=== PATIENT | male | born 1975 | race Caucasian/White ===

== ENCOUNTER 2024-12-21 11:08 | Outpatient (CLI) | payer OTHER, SELFPAY ==
[2024-12-21 11:04] LABS: Basophils % 0.4 % (0.1-2.0); Eosinophils # 0.1 K/mm3 (0.0-0.4); Lymphocytes # 1.8 K/mm3 (0.7-4.5); Monocytes # 0.4 K/mm3 (0.1-1.0)
[2024-12-21 11:14] LABS: Eosinophils % 1.7 % (0.1-12.0); Hematocrit 46.9 % (42.0-52.0); Hemoglobin 15.6 g/dL (14.1-18.0); Mean Corpuscular HGB Conc 33.3 g/dL (31.8-35.4); Mean Corpuscular Hemoglobin 27.9 pg (27.0-31.2); Mean Corpuscular Volume 83.9 fl (80-94); Mean Platelet Volume 9.9 fl (7.4-10.4); Monocytes % 7.9 % (1.7-9.3); Neutrophils # 2.4 K/mm3 (1.8-7.8); Neutrophils % 51.8 % (37.0-80.0); Platelet Count 196 K/mm3 (142-424); Red Blood Count 5.59 M/mm3 (4.60-6.20); Red Cell Distribution Width 12.5 % (11.5-17.5); White Blood Count 4.7 K/mm3 (4.8-10.8)
[2024-12-21 11:43] LABS: Alanine Aminotransferase 51 U/L (12-78); Albumin Level 4.3 g/dl (3.5-5.0); Albumin/Globulin Ratio 1.7 (1.1-1.8); Alkaline Phosphatase 56 U/L (38-126); Anion Gap 11.4 mEq/L (5-15); Aspartate Amino Transferase 41 U/L (17-59); Bilirubin,Total 0.6 mg/dl (0.2-1.3); Blood Urea Nitrogen 17 mg/dl (9-20); Calcium 9.3 mg/dl (8.4-10.2); Carbon Dioxide 28 mmol/L (22.0-30.0); Chloride 106 mmol/L (98-107); Chol/HDL Ratio 4.8 (1-3.5); Cholesterol 155 mg/dl (140-200); Estimated Glomerular Filt Rate 71 ml/min (>60); GFR (African American) 86 ML/MIN (>60); Globulin 2.5 g/dL (1.3-3.2); Glucose 77 mg/dl (74-100); HDL Cholesterol 32 mg/dl (40-60); Potassium 4.4 mmoL/L (3.5-5.1); Sodium 141 mmol/L (136-145); Total Protein,Serum 6.8 g/dl (6.3-8.2); Triglycerides 187 mg/dl (30-150); VLDL Cholesterol 37 mg/dL (0-40)
[2024-12-21 13:14] LABS: Direct LDL Cholesterol 91.48 mg/dL (100-129)
[2024-12-21 14:38] LABS: Hemoglobin A1C 4.7 % (4.0-6.0)
[2024-12-21 18:09] LABS: Free T4 (Free Thyroxine) 0.86 ng/dl (0.78-2.19)
== END 2024-12-21 23:59 | disposition home or self-care (01) ==
LOC: LAB.DROPOF 11:09
PROVIDERS: PCP Internal Medicine; Visit Provider Internal Medicine
DX: Z00.00 Encounter for general adult medical examination without abnormal findings (principal); Z13.29 Encounter for screening for other suspected endocrine disorder; Z13.220 Encounter for screening for lipoid disorders; Z13.1 Encounter for screening for diabetes mellitus
CPT/HCPCS: 80053; 80061; 83036; 84439; 84443; 85025

== ENCOUNTER 2025-02-04 13:39 | Outpatient (CLI) | payer OTHER, SELFPAY ==
[2025-02-04 12:03] LABS: Free T4 (Free Thyroxine) 0.99 ng/dl (0.78-2.19)
[2025-02-04 12:17] LABS: Thyroid Stimulating Hormone 8.23 uIU/mL (0.465-4.68)
== END 2025-02-04 23:59 | disposition home or self-care (01) ==
LOC: LAB.DROPOF 13:39
PROVIDERS: PCP Internal Medicine; Visit Provider Internal Medicine
DX: Z13.29 Encounter for screening for other suspected endocrine disorder (principal)
CPT/HCPCS: 84439; 84443

== ENCOUNTER 2025-02-09 08:35 | Day surgery (SDC) | payer OTHER, SELFPAY ==
[2025-02-09 08:46] VITALS: BP 131/96; PULSE 87; RESP 18; TEMP 36.1; O2SAT 97; BMI 28.2
--- NOTE | 2025-02-09 09:06 | P.PNANES_ITS ---
[facility] Disclaimer: The information contained in this section may have been updated after the patient was seen, as this information can be updated by other users. Medical History Factor VIII deficiency hemophilia Borderline hypertension Surgical History H/O hemorrhoidectomy History of left knee replacement Family History (Updated 02/08/25 @ 09:21 by Todd Figueredo RN) Other No significant family history Social History (Updated 02/08/25 @ 09:24 by Todd Figueredo RN) Smoking Status: Never smoker alcohol intake: never substance use type: denies use current occupational status: employed Travel in the last 8 weeks: Inside the [place] Have you lived/traveled outside US in past 30 days?: No Contact w/someone who lives/traveled outside US past 30 days?: No Exposure to someone with infectious disease in past 14 days?: No Do you have a fever (greater than 100.4 F or 38 C)?: No Have you tested positive for COVID-19: No Exposed to someone with COVID-19 in past 14 days?: No Do you have a sore throat?: No Do you have a cough?: No Do you have any weakness?: No Do you have any diarrhea?: No Are you experiencing any unusual bleeding?: No Do you have any muscle aches/pain?: No Do you have any abdominal pain?: No Are you experiencing loss of taste or smell?: No [facility] Anesthesia Checklist Patient Identification Patient Identification: Arm Band Structural Data Admitted From: Home Planned Operative Procedure/s: Colonoscopy Consent for Planned Operative Procedure(s) Verified: Yes Verified Documents: Surgical Consent and History and Physical NPO Status Verified Time NPO: 00:00 Additional verifications Anesthesia Reactions: No Airway Assessment Mallampati Score:: Class II C-Spine Mobility Assessed: Yes TMJ Mobility Assessed: Yes Dentition: Good Dentition Neurological Assessment Level of Consciousness: Awake, Alert and Appropriate Anesthesia Plan Anesthesia Risk discussed: Yes Anesthesia Plan: Verified ASA Class: II Anesthesia Type: MAC
--- NOTE | 2025-02-09 09:17 | EXP.GEN.HP ---
HPI HPI HPI: This is a 49-year-old gentleman who presents for screening colonoscopy. [facility] Disclaimer: The information contained in this section may have been updated after the patient was seen, as this information can be updated by other users. Medical History Factor VIII deficiency hemophilia Borderline hypertension Surgical History H/O hemorrhoidectomy History of left knee replacement Family History (Updated 02/08/25 @ 09:21 by Todd Figueredo RN) No significant family history Social History (Updated 02/08/25 @ 09:24 by Todd Figueredo RN) Smoking Status: Never smoker alcohol intake: never substance use type: denies use current occupational status: employed Travel in the last 8 weeks: Inside the [place] Have you lived/traveled outside US in past 30 days?: No Contact w/someone who lives/traveled outside US past 30 days?: No Exposure to someone with infectious disease in past 14 days?: No Do you have a fever (greater than 100.4 F or 38 C)?: No Have you tested positive for COVID-19: No Exposed to someone with COVID-19 in past 14 days?: No Do you have a sore throat?: No Do you have a cough?: No Do you have any weakness?: No Do you have any diarrhea?: No Are you experiencing any unusual bleeding?: No Do you have any muscle aches/pain?: No Do you have any abdominal pain?: No Are you experiencing loss of taste or smell?: No Other Medical History Have you received the Pneumonia Vaccine: No Review of Systems Review of Systems Review of systems:: pertinent systems reviewed and negative unless documented below Meds Home Medications and Allergies Home Medications ?Medication ?Instructions ?Recorded ?Confirmed ?Type emicizumab-kxwh 150 mg/mL 150 mg SQ WEEKLY 02/08/25 02/08/25 History subcutaneous solution (Hemlibra) New Prescriptions to Start Prescriptions: Allergies Allergy/AdvReac Type Severity Reaction Status Date / Time No Known Allergies Allergy Verified 12/18/24 14:36 Exam Data for Last 24 hours Vital signs and Labs for Last 24 Hours: Temp Pulse Resp BP Pulse Ox O2 Del Method 97 F L 87 18 131/96 H 97 Room Air 02/09/25 08:46 02/09/25 08:46 02/09/25 08:46 02/09/25 08:46 02/09/25 08:46 02/09/25 08:46 I & O for Last 24 hours: Intake & Output 02/06/25 02/07/25 02/08/25 02/09/25 11:59 11:59 11:59 11:59 Weight 208 lb Constitutional Constitutional: no acute distress *Routine HEENT Exam Head: Present normocephalic Eye: Present EOMI ENT: Present mucous membranes moist *Routine Respiratory Exam Respiratory: Absent respiratory distress *Routine Cardiovascular Exam Cardiovascular: Absent tachycardia *Routine Abdominal Exam Abdominal: Present soft *Routine Rectal Exam Rectal:: deferred *Routine Genitalia Exam Genitalia:: deferred *Routine Neurological Exam Neurological: Present alert Routine Psychiatric Exam Psychiatric: Present normal affect Assessment and Plan *Assessment and plan (1) Screening for colorectal cancer: Status: Acute Category: Medical Code(s): Z12.11 - Encounter for screening for malignant neoplasm of colon; Z12.12 - Encounter for screening for malignant neoplasm of rectum Plan: Colonoscopy today I have discussed the risks and benefits including, but not limited to: Bleeding Infection Damage to surrounding tissue Inherent risks of sedation The patient agrees to proceed.
--- NOTE | 2025-02-09 09:19 | HMH.SCOPE ---
Procedure: Date: 02/09/25 Patient Date of :: 1975 Procedure Performed:: Colonoscopy with polypectomy Indications:: Screening Performing Provider:: Forrest Nettles MD Referring Provider:: . Sedation:: Monitored anesthesia care Procedure:: After informed consent was obtained the patient was taken to the endoscopy suite. Sedation ensued after the patient was transferred to the left lateral decubitus position. Pulse, blood pressure, and oxygen saturation were monitored throughout the procedure. Digital rectal exam revealed no significant abnormality. The colonoscope was placed in position. The entire colon was evaluated. The colonoscope was carefully removed and the patient was transferred to recovery in stable condition. Please see findings and specimens below for detail. Findings:: Bowel preparation relatively fair Scattered diverticulosis (mostly in sigmoid colon) Severe spasticity/lack of relaxation Moderate tortuosity Hemorrhoidal cushions Multiple complex polyps (see specimens) Specimens:: Lobulated complex polyp at 60 cm (cold snare) Complex lobulated partially-pedunculated polyp at 35 cm (hot snare) Complex partially-pedunculated polyp at 30 cm (hot snare) Adjacent partially-pedunculated polyps at 20 cm (hot snare) Cluster of lobulated polyps at 15 cm (hot snare) Recommendations:: Timing of repeat colonoscopy is pending pathology but will likely be around 1 year secondary to size/nature/number of polyps. Complications:: No immediate Estimated blood obtained (mL): 1 Colonoscopy Component Colonoscopy Component Was a colonoscopy performed during today's procedure?: Yes Recommended follow up colonoscopy of at least 10 years?: No If no, follow up colonoscopy recommended in ___ years?: (See above) Reason for not recommending >/= 10 yr follow-up interval?: (See above)
[2025-02-09 09:23] VITALS: O2SAT 97
[2025-02-09 10:09] VITALS: BP 100/72; PULSE 94; RESP 14; TEMP 36.4; O2SAT 92
[2025-02-09 10:19] VITALS: BP 122/83; PULSE 84; RESP 15; O2SAT 96
[2025-02-09 10:29] VITALS: BP 114/79; PULSE 78; RESP 16; O2SAT 94
[2025-02-09 10:39] VITALS: BP 117/80; PULSE 67; RESP 16; O2SAT 96
== END 2025-02-09 10:39 | disposition home or self-care (01) ==
PROVIDERS: PCP Internal Medicine; Visit Provider Surgery
PROC: 0DJD8ZZ Inspection of Lower Intestinal Tract, Via Natural or Artificial Opening Endoscopic (ICD-10-PCS; CPT 45385; principal; 2025-02-09 09:30)
DX: K63.5 Polyp of colon (principal); K57.30 Diverticulosis of large intestine without perforation or abscess without bleeding; K64.9 Unspecified hemorrhoids; Z12.11 Encounter for screening for malignant neoplasm of colon; Z12.12 Encounter for screening for malignant neoplasm of rectum
CPT/HCPCS: 45385; J2704

== ENCOUNTER 2025-03-29 13:23 | Outpatient (CLI) | payer OTHER, SELFPAY ==
[2025-03-29 17:54] LABS: Free T4 (Free Thyroxine) 0.86 ng/dl (0.78-2.19)
[2025-03-29 18:06] LABS: Thyroid Stimulating Hormone 5.11 uIU/mL (0.465-4.68)
== END 2025-03-29 23:59 | disposition home or self-care (01) ==
LOC: LAB.DROPOF 03-30 10:22
PROVIDERS: PCP Internal Medicine; Visit Provider Internal Medicine
DX: E03.8 Other specified hypothyroidism (principal); Z13.29 Encounter for screening for other suspected endocrine disorder
CPT/HCPCS: 84439; 84443

== ENCOUNTER 2025-04-30 16:50 | Outpatient (CLI) | payer OTHER, SELFPAY ==
--- OUTSIDE RECORDS SUMMARY | 2025-04-30 16:53 | XMS_ITS | CCD ---
Author Name Interface, [id number] Address [place] [address] Organization [facility] Address [address] [address] Care Team Providers Care Assistant Producer Name Role Phone Rommel Durán Unavailable Unavailable Adi Cortez Unavailable Unavailable Donnie Dangelo Unavailable Unavailable Allergies and Adverse Reactions Reason for Visit Encounters Functional Status Medications Problems Social History
--- OUTSIDE RECORDS SUMMARY | 2025-04-30 16:53 | XMS_ITS | Clinical Summary ---
Author Organization [facility] Address [address] [place] [id number] Care Team Providers Care Schedule Hanger Name Role Phone Yoli Fregoso MD Unavailable [phone] Karol Weldon RN Unavailable Unavailable Dana Corbin Unavailable [phone] Kaila Medina CNP Unavailable [phone] Pcp, No Primary Care Provider [phone] Source Comments This information has been disclosed to you from confidential records protectedfrom disclosure by state law. You shall make no further disclosure of thisinformation without the specific, written, and informed release of theindividual to whom it pertains, or as otherwise permitted by law. A generalauthorization for the release of medical or other information is not sufficientfor the purposes of therelease of HIV test results or diagnoses. [id number] Allergies No known active allergies Medications emicizumab-kxwh (HEMLIBRA) 150 mg/mL injectionIndicati ons:Bleeding Prevention in Hereditary Factor VIII Deficiency Inject 1.9 mLs (285 mg total) subcutaneously every 14 days. Give each injection at a different anatomic location than the previous injection. Indications: Bleeding Prevention in Hereditary Factor VIII Deficiency 3.8 mL 12 05/20/20 24 025 Active traMADoL (ULTRAM) 50 mg tabletIndications :Arthropathy associated with a hematological disorder Take 1 tablet (50 mg total) by mouth every 6 hours as needed for Pain for up to 30 days. 30 tablet 03/19/20 25 025 Active Problems Problem Noted Date Diagnosed Date Arthropathy 11/11/2017 Overview (11/21/2023): Last Assessment & Plan: ASSESSMENT: The patient's condition is unchanged. 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 No suspicious fill activity noted. Elevated blood pressure read ing without diagnosis of hypertension 11/07/2016 Overview (11/21/2023): Last Assessment & Plan: ASSESSMENT: The patient's condition is unchanged. PLAN: Monitor bp. If remains elevated, add medications Pt to monitor at home Goal 130/80 or less Hypertension 09/08/2007 Hypothyroidism 09/08/2007 Overview (11/21/2023): Last Assessment & Plan: ASSESSMENT: The patient's condition is unchanged. PLAN: Monitor thyroid function tests Continue levothyroxine. 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 PLAN: Continue hematology follow up Encounters Date Type Department Care Team Description 03/18/2025 Refill [facility] Benign Hematology at [address] [place] [address] Yoli Fregoso MD Arthropathy associated with a hematological disorder from Last 3 Months Immunizations Immunization Administration Dates Next Due Influenza, quadrivalent, preservative-free 11/07 Pneumococcal conjugate, 13-valent 11/07/2016 Typhoid Oral Live 07/12/2015 tdap 11/11/2017 Family History Medical History Relation Comments Dementia Mother Relation Status Comments Father Mother Social History Tobacco Use Types Packs/Day Years Used Date Smoking Tobacco: Never Smokeless Tobacco: Never Tobacco Cessation:Counseling Given: Not Answered Alcohol Use Standard Drinks/Week Comments Yes 0 (1 standard drink = 0.6 oz pur e alcohol) socially PHQ-2 Answer Date Recorded PHQ-2 Total Score 0 10/29/2024 Yearly Questionnaire Answer Date Record ed Do you need any assistance w ith obtaining housing, meals, medication, transportation or medical equipment? No 06/02 Assistance needed for: Not on file 4 Yearly Questionnaire Answer Date Record ed Do you need any assistance w ith obtaining housing, meals, medication, transportation or medical equipment? No 06/02 Assistance needed for: Not on file 4 Yearly Questionnaire Answer Date Record ed Do you need any assistance w ith obtaining housing, meals, medication, transportation or medical equipment? No 06/02 Assistance needed for: Not on file Sex and Gender Information Value Date Recorded Sex Assigned at Not on file Legal Sex Male 2:22 PM EDT Gender Identity Not on file Sexual Orientation Not on file Last Filed Vital Signs Vital Sign Reading Time Taken Comments Blood Pressure 139/90 10/29/2024 2:59 PM EST Pulse 79 10/29/2024 2:59 PM EST Temperature 36.7 C (98 F) 10/29/2024 2:59 PM EST Respiratory Rate - - Oxygen Saturation 98% 10/29/2024 2:59 PM EST Inhaled Oxygen Concentration 98% 10/29/2024 2 :59 PM EST Weight 98.9 kg (218 lb) 10/29/2024 2:59 PM EST Height 182.9 cm (6') 06/02/2024 2:16 PM EDT Body Mass Index 29.57 06/02/2024 2:16 PM EDT Plan of Treatment Health Maintenance Due Date Last Done Comments ASCVD Assessment 1975 Abnormal Colonoscopy Follow Up 1975 Renal Function/GFR 1975 Alcohol Misuse Screening 02/13/1992 HIV Screening 02/13/1992 Thyroid Function/TSH (MyChart) 02/13/1992 Immunization: Hepatitis B (1 of 3 - 19+ 3-dose series) 1993 Cologuard (FIT-DNA) 2019 Colonoscopy 2019 Colorectal Cancer Screening (MyChart) 2019 Stool Testing (gFOBT) 2019 Immunization: Pneumococcal ( 2 of 2 - PPSV23) 02/13/2024 11/07/2016 Immunization: Zoster (1 of 2) 02/13/2024 Immunization: COVID-19 ( - season) 2024 Immunization: Influenza (MyChart) (Season Ended) 2025 11/07/2016, 08/19/2008 Depression Screening 10/29/2025 10/29/2024, 06/02/2024 Immunization: DTaP/Tdap/Td ( 2 - Td or Tdap) 11/11/2027 11/11/2017 Immunization: Hepatitis A Aged Out No longer eligible based on patient's age to complete this topic Insurance EXCHANGE Care Teams Schedule Hanger Relationship Specialty Start Date End Date Pcp, No [phone] [place] [address] PCP - General 05/21/24 Yoli Fregoso MD [address] [facility] [address] [place] [address] Consulting Physician [facility] 11/21/23 Karol Weldon, YVES Registered Nurse Benign Hematology 11/21/23 Dana Corbin LISW-S [address] [place]ematology/[place] [id number] Traction Power Engineer Hematology and Oncology 11/21/23 Kaila Medina, DELIA [address] [facility] [address] [place] [address] Nurse Practitioner [facility] Hematology 11/21/23
--- OUTSIDE RECORDS SUMMARY | 2025-04-30 16:53 | XMS_ITS ---
Author Name Interface, [id number] lity Address [place] [address] Organization [facility] Address [place] [address] Care Team Providers Care Artificial Cherry Maker Name Role Phone Adi Cortez Unavailable Unavailable Allergies and Adverse Reactions Medication/Group Name Reaction Severity Date No known allergies Plan Date Type Value 09/10/2023 APPOINTMENT MB L OV 12m 09/10/2023 APPOINTMENT MB L OV 12m 09/11/2022 APPOINTMENT MB L OV f/u 09/11/2022 APPOINTMENT MB L OV 09/11/2022 APPOINTMENT MB L OV 09/11/2022 APPOINTMENT MB L OV 09/11/2022 LABORDER CMP 09/11/2022 LABORDER CBC w/ auto diff 09/10/2023 LABORDER CMP 09/10/2023 LABORDER CBC w/ auto diff Reason for Visit MB L OV 12m Encounters Date Name 09/11/2022 Factor VIII deficien cy (disorder) Diagnostic Results Date Type Test Units Lower Limit Upper Limit Result Flag Comments Status Ordered By Specimen Source Lab Address 09/11 CMP CO2 mmol/L 21.0 32.0 28.2 FINAL Adi Cortez Plasma [facility]. [address] [place] [address] [address] [address] CLIA#[id number] 09/11 CMP BUN mg/dL 7.0 18.0 18.0 FINAL Adi Cortez [facility]. [address] [place] [address] [address] [address] CLIA#[id number] 09/11 CMP Creat inine mg/dL 0.55 1.3 1.17 FINAL Adi Cortez Plasma [facility]. [address] [place] [address] [address] [address] CLIA#[id number] 09/11 CMP BUN/C reati nine ratio Ratio 10.0 20.0 15.4 FINAL Adi Cortez [facility]. [address] [place] [address] [address] [address] CLIA#[id number] 09/11 CMP GFR estim ate 73 eGFR based on CKD-EPI to estimate renal function. If multiply results by 1.159.60- 89 mL/min/1. 73m^2 without kidney damage may be normal.60 -89 mL/min/1. 73m^2 for 3 months or more, along with kidney damage, may indicate early kidney disease. FINAL [facility] Plasma [facility]. [address] [place] [address] [address] [address] CLIA#[id number] 09/11 CMP Gluco se mg/dL 65 Criti js Low CRITICAL VALUE called to and read back by Joan Molina on 2 on 11:27 AM by Yoli Mcwilliams. (GLU) FINAL [facility]. [address] [place] [address] [address] [address] CLIA#[id number] 09/11 CMP Calci um mg/dL 8.5 10.1 9.1 FINAL [facility]. [address] [place] [address] [address] [address] CLIA#[id number] 09/11 CMP Total prote in g/dL 6.4 8.2 7.4 FINAL Adi Cortez Plasma [facility]. [address] [place] [address] [address] [address] CLIA#[id number] 09/11 CMP Album in g/dL 3.4 5.0 3.8 FINAL Adi [facility] Plasma [facility]. [address] [place] [address] [address] [address] CLIA#[id number] 09/11 CMP Globu santa g/dL 2.3 3.5 3.6 High FINAL [facility] Plasma [facility]. [address] [place] [address] [address] [address] CLIA#[id number] 09/11 CMP Bilir ubin, total mg/dL 0.2 1.0 0.8 FINAL Adi Cortez [facility]. [address] [place] [address] [address] [address] CLIA#[id number] 09/11 CMP AST/S GOT U/L 15.0 37.0 30.0 FINAL Adi Cortez [facility]. [address] [place] [address] [address] [address] CLIA#[id number] 09/11 CMP ALT/S GPT U/L 16.0 63.0 40 FINAL Adi Cortez [facility]. [address] [place] [address] [address] [address] CLIA#[id number] 09/11 CMP Alkal ine phosp hatas e U/L 46.0 116.0 63 FINAL Adi Cortez [facility]. [address] [place] [address] [address] [address] CLIA#[id number] 09/11 CMP Sodiu m mmol/L 136.0 145.0 139.0 FINAL Adi Cortez [facility]. [address] [place] [address] [address] [address] CLIA#[id number] 09/11 CMP Potas sium mmol/L 3.5 5.1 3.8 FINAL Adi Cortez [facility]. [address] [place] [address] [address] [address] CLIA#[id number] 09/11 CMP Chlor hi mmol/L 97.0 107.0 104 FINAL Adi Cortez [facility]. [address] [place] [address] [address] [address] CLIA#[id number] 09/11 CBC w/ auto diff WBC 10^3/u l 4.8 10.8 5.2 FINAL Adi Cortez Whole Blood [facility]. [address] [place] [address] [address] [address] CLIA#[id number] 09/11 CBC w/ auto diff RBC 10^6/u l 4.7 6.1 5.51 FINAL Adi Cortez Whole [facility]. [address] [place] [address] [address] [address] CLIA#[id number] 09/11 CBC w/ auto diff HGB g/dl 14.0 18.0 15.7 FINAL Adi Cortez Whole Blood [facility]. [address] [place] [address] [address] [address] CLIA#[id number] 09/11 CBC w/ auto diff HCT % 40.0 50.0 45.2 FINAL Adi Cortez Whole Blood [facility]. [address] [place] [address] [address] [address] CLIA#[id number] 09/11 CBC w/ auto diff MCV fl 80.0 94.0 82.0 FINAL Adi Cortez Whole [facility]. [address] [place] [address] [address] [address] CLIA#[id number] 09/11 CBC w/ auto diff MCH pg 27.0 31.0 28.5 FINAL Adi Cortez Whole Blood [facility]. [address] [place] [address] [address] [address] CLIA#[id number] 09/11 CBC w/ auto diff MCHC g/dl 33.0 37.0 34.7 FINAL Adi Cortez Whole Blood [facility]. [address] [place] [address] [address] [address] CLIA#[id number] 09/11 CBC w/ auto diff MPV fl 9.4 12.4 9.4 FINAL Adi Cortez Whole Blood [facility]. [address] [place] [address] [address] [address] CLIA#[id number] 09/11 CBC w/ auto diff RDW % 10.5 14.5 13.1 FINAL Adi Cortez Whole Blood [facility]. [address] [place] [address] [address] [address] CLIA#[id number] 09/11 CBC w/ auto diff PLT 10^3/u l 130.0 400.0 196 FINAL Adi Cortez Whole Blood [facility]. [address] [place] [address] [address] [address] CLIA#[id number] 09/11 CBC w/ auto diff Derek % % 40.0 77.0 58.2 FINAL Adi Cortez Whole Blood [facility]. [address] [place] [address] [address] [address] CLIA#[id number] 09/11 CBC w/ auto diff Derek # (ANC) x10^3/ ul 1.5 6.5 3.0 FINAL Adi Cortez Whole Blood [facility]. [address] [place] [address] [address] [address] CLIA#[id number] 09/11 CBC w/ auto diff IG % % 0.0 0.5 0.2 FINAL Adi Cortez Whole Blood [facility]. [address] [place] [address] [address] [address] CLIA#[id number] 09/11 CBC w/ auto diff IG # x10^3/ ul 0.0 0.0 0.0 FINAL Adi Cortez Whole Blood [facility]. [address] [place] [address] [address] [address] CLIA#[id number] 09/11 CBC w/ auto diff LY % % 15.0 41.0 27.5 FINAL Adi Cortez Whole Blood [facility]. [address] [place] [address] [address] [address] CLIA#[id number] 09/11 CBC w/ auto diff LY # x10^3/ ul 1.2 3.4 1.4 FINAL Adi Cortez Whole Blood [facility]. [address] [place] [address] [address] [address] CLIA#[id number] 09/11 CBC w/ auto diff MO % % 3.0 11.0 11.2 High FINAL Adi Cortez Whole Blood [facility]. [address] [place] [address] [address] [address] CLIA#[id number] 09/11 CBC w/ auto diff MO # x10^3/ ul 0.0 1.0 0.6 FINAL Adi Cortez Whole Blood [facility]. [address] [place] [address] [address] [address] CLIA#[id number] 09/11 CBC w/ auto diff EO % % 0.0 3.0 2.5 FINAL Adi Cortez Whole Blood [facility]. [address] [address] CLIA#[id number] 09/11 CBC w/ auto diff EO # x10^3/ ul 0.0 0.3 0.1 FINAL Adi Cortez Whole Blood [facility]. [address] [place] [address] [address] [address] CLIA#[id number] 09/11 CBC w/ auto diff BA % % 0.0 1.0 0.4 FINAL Adi Cortez Whole Blood [facility]. [address] [place] [address] [address] [address] CLIA#[id number] 09/11 CBC w/ auto diff BA # x10^3/ ul 0.0 0.2 0.0 FINAL Adi Cortez Whole Blood [facility]. [address] [place] [address] [address] [address] CLIA#[id number] 09/11 CBC w/ auto diff NRBC, % % 0.0 1.0 0.0 FINAL Adi Cortez Whole Blood [facility]. [address] [place] [address] [address] [address] CLIA#[id number] 09/11 CBC w/ auto diff NRBC, absol germain, x 10^3/ uL 10^3/u l 0.0 0.1 0.0 FINAL Adi Cortez Whole Blood [facility]. [address] [place] [address] [address] [address] CLIA#[id number] Medications Date Name Route Dose Frequency Instructions Start Date End Date Status 2022 tramadol hydrochloride 50 MG Oral Tablet orally 1.0 tablet (s) every 4 hours 2022 active 2022 tramadol hydrochloride 50 MG Oral Tablet orally 1.0 tablet (s) every 4 hours 2022 active 2022 1 ML emicizumab-kxwh 150 MG/ML Injection [Hemlibra] 2022 active 2022 tramadol hydrochloride 50 MG Oral Tablet orally 1.0 tablet (s) every 4 hours 2022 active 2021 tramadol hydrochloride 50 MG Oral Tablet orally 1.0 tablet (s) every 4 hours 2021 active 2021 tramadol hydrochloride 50 MG Oral Tablet orally 1.0 tablet (s) every 4 hours 2021 active 2021 antihemophilic factor, human recombinant 1 UNT Injection [Kogenate] intravenously 2851.0 unit As Directed 2021 active 2021 1 ML emicizumab-kxwh 150 MG/ML Injection [Hemlibra] 2021 active 2021 1 ML emicizumab-kxwh 150 MG/ML Injection [Hemlibra] subcutaneously 300.0 mg every week 2021 active 2021 antihemophilic factor, human recombinant 1 UNT Injection [Kogenate] intravenously 2851.0 unit every other day 2021 active 2021 tramadol hydrochloride 50 MG Oral Tablet orally 1.0 tablet (s) every 4 hours 2021 active 2020 tramadol hydrochloride 50 MG Oral Tablet orally 1.0 tablet (s) every 4 hours 2020 active 2020 antihemophilic factor, human recombinant 1 UNT Injection [Advate] intravenously 2851.0 unit every other day 2020 active 2020 tramadol hydrochloride 50 MG Oral Tablet orally 1.0 tablet (s) every 4 hours 2020 active 2020 tramadol hydrochloride 50 MG Oral Tablet orally 1.0 tablet (s) every 4 hours 2020 active 2020 tramadol hydrochloride 50 MG Oral Tablet orally 1.0 tablet (s) every 4 hours 2020 active 2019 simoctocog [place] 1 UNT Injection [Nuwiq] intravenous 3000.0 iu As Directed 2019 active 2019 simoctocog [place] 1 UNT Injection [Nuwiq] intravenous 3000.0 iu As Directed 2019 active 2019 simoctocog [place] 1 UNT Injection [Nuwiq] intravenous 3000.0 iu As Directed 2019 active 2019 simoctocog [place] 1 UNT Injection [Nuwiq] intravenous 2844.0 iu As Directed 2019 active 2019 Levothyroxine Oral PO 1.0 TABLET (S) daily 2019 active 2019 tramadol hydrochloride 50 MG Oral Tablet orally 1.0 tablet (s) every 4 hours 2019 active 2018 tramadol hydrochloride 50 MG Oral Tablet orally 1.0 tablet (s) every 4 hours 2018 active 2018 tramadol hydrochloride 50 MG Oral Tablet orally 1.0 tablet (s) every 4 hours 2018 active 2017 tramadol hydrochloride 50 MG Oral Tablet orally 1.0 tablet (s) every 4 hours 2017 active 2017 tramadol hydrochloride 50 MG Oral Tablet orally 1.0 tablet (s) every 4 hours 2017 active 2016 antihemophilic factor, human recombinant 1 UNT Injection 2016 active 2016 tramadol hydrochloride 50 MG Oral Tablet orally 1.0 tablet (s) every 6 hours 2016 active 2016 antihemophilic factor, human recombinant 1 UNT Injection 2016 active 2016 antihemophilic factor, human recombinant 1 UNT Injection 2016 active 2016 antihemophilic factor, human recombinant 1 UNT Injection 2016 active 2016 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
--- OUTSIDE RECORDS SUMMARY | 2025-04-30 16:53 | XMS_ITS | Encounter Summary ---
Author Organization [facility] Address [facility] [place] [address] Care Team Providers Care Measurement Technician Name Role Phone Yoli Fregoso MD Unavailable [phone] Mayra Weldon RN Unavailable Unavailable Dana Corbin Unavailable [phone] Kaila Medina CNP Unavailable [phone] Pcp, No Primary Care Provider [phone] Source Comments This information has been disclosed to you from confidential records protectfrom disclosure by state law. You shall make no further disclosure of thisinformation without the specific, written, and informed release of theindividual to whom it pertains, or as otherwise permitted by law. A generalauthorization for the release of medical or other information is not sufficientfor the purposes of the release of HIV test results or diagnoses. [id number] Reason for Visit * Reason Comments Medication Refill Encounter Details Date Type Department Care Team (Late st Contact Info) Description 03/18/[address] [facility] Benign Hematology at [address] [address] Yoli Fregoso MD [address] [facility] Hematology/[place] [address] Arthropathy associated with a hematological disorder Social History Tobacco Use Types Packs/Day Years Used Date Smoking Tobacco: Never Smokeless Tobacco: Never Alcohol Use Standard Drinks/Week Comments Yes 0 [...] Assistance needed for: Not on file 4 Sex and Gender Information Value Date Recorded Sex Assigned at Not on file Legal Sex Male 2:22 PM EDT Gender Identity Not on file Sexual Orientation Not on file documented as of this encounter Miscellaneous Notes * Telephone Encounter - Mayra Weldon RN - 03/18/2025 8:16 PM EDT Chery Hargrove calling with request to refill tramadol 50mg. OARRS report reviewed and consistent with plan of care. Last appointment: 10/29/24 Last refill: 12/18/24 Follow up scheduled for: 11/04/25 Refill request sent to: Dr. Dangelo (for Dr. Fregoso) Pt preferred pharmacy: [facility] RN spoke with the patient and updated on the plan of care and to allow 48hrs for refill requests alistair processed. Patient verbalized understanding. 01/30/2024 12:11 PM 04/07/2024 11:34 AM 08/26/2024 2:33 PM 12/18/2024 11:04 AM 03/18/2025 8:16 PM Controlled Substance Monitoring OARRS/eKASPER Status Reviewed Reviewed Reviewed Reviewed Reviewed OARRS/eKASPER Consistent with Prescriber Expectation Y Y Y Y Y UDS Consistent with Prescriber Expectation Y Last Drug Screen No lab values to display. Pain Agreement -- Encounter Level: Pain Agreement: None found at the encounter level. Pain Agreement -- Patient Level: Pain Agreement: None found at the patient level. I have completed the required OARRS/eKASPER documentation for this patient on 03/18/2025. 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 Hematology/[place] [id number] Geophysical Operator Hematology and Oncology 11/21/23 Kaila Medina, DELIA [address] [place] [address] Nurse Practitioner [facility] Hematology 11/21/23 documented as of this encounter
--- OUTSIDE RECORDS SUMMARY | 2025-04-30 16:53 | XMS_ITS ---
Author Name Interface, [id number] lity Address [place] breakthrough[place] [address] Organization [facility] Address [place] breakthroughs[place] [address] Care Team Providers Care Nylon Hot Wire Cutter Name Role Phone Adi Cortez Unavailable Unavailable [...] 21.0 32.0 28.2 FINAL Adi Cortez [facility]. [address] [place] [address] [address] [address] CLIA#[id number] 09/11 CMP BUN mg/dL 7.0 18.0 18.0 FINAL Adi Cortez [facility]. [address] [place] [address] [address] [address] CLIA#[id number] [id number] 09/11 CMP Creat inine mg/dL 0.55 1.3 1.17 FINAL Adi Cortez [facility]. [address] [place] [address] [address] [address] CLIA#[id number] [id number] 09/11 CMP BUN/C reati nine ratio Ratio 10.0 20.0 15.4 FINAL Adi Cortez [facility]. [address] [place] [address] [address] [address] CLIA#[id number] 09/11 CMP GFR estim ate 73 eGFR based on CKD-EPI to estimate renal function. If multiply results by 1.159.60- 89 mL/min/1. 73m^2 without kidney damage may be normal.60 -89 mL/min/1. 73m^2 for 3 months or more, along with kidney damage, may indicate early kidney disease. FINAL [facility]. [address] [place] [address] [address] [address] CLIA#[id number] 09/11 CMP Gluco se mg/dL 65 Criti js Low CRITICAL VALUE called to and read back by Joan Molina on 2 on 11:27 AM by Yoli Mcwilliams. (GLU) FINAL [facility]. [address] [place] [address] [address] [address] CLIA#[id number] 09/11 CMP Calci um mg/dL 8.5 10.1 9.1 FINAL [facility]. [address] [place] [address] [address] [address] CLIA#45D [id number] 09/11 CMP Total prote in g/dL 6.4 8.2 7.4 FINAL Adi Cortez [facility]. [address] [place] [address] [address] [address] CLIA#45D [id number] 09/11 CMP Album in g/dL 3.4 5.0 3.8 FINAL Adi [facility]. [address] [place] [address] [address] [address] CLIA#[id number] 09/11 CMP Globu santa g/dL 2.3 3.5 3.6 High FINAL [facility]. [address] [place] [address] [address] [address] CLIA#[id number] [id number] 09/11 CMP Bilir ubin, total mg/dL 0.2 1.0 0.8 FINAL Adi Cortez [facility]. [address] [place] [address] [address] [address] CLIA#[id number] [id number] 09/11 CMP AST/S GOT U/L 15.0 37.0 30.0 FINAL Adi Cortez [facility]. [address] [place] [address] [address] [address] CLIA#[id number] [id number] 09/11 CMP ALT/S GPT U/L 16.0 63.0 40 FINAL Adi Cortez [facility]. [address] [place] [address] [address] [address] CLIA#45D [id number] 09/11 CMP Alkal ine phosp hatas e U/L 46.0 116.0 63 FINAL Adi Cortez [facility]. [address] [place] [address] [address] [address] CLIA#[id number] [id number] 09/11 CMP Sodiu m mmol/L 136.0 145.0 139.0 FINAL Adi Cortez [facility]. [address] [place] [address] [address] [address] CLIA#45D [id number] 09/11 CMP Potas sium mmol/L 3.5 5.1 3.8 FINAL Adi Cortez [facility]. [address] [place] [address] [address] [address] CLIA#[id number] [id number] 09/11 CMP Chlor hi mmol/L 97.0 107.0 104 FINAL Adi Cortez [facility]. [address] [place] [address] [address] [address] CLIA#[id number] [id number] 09/11 CBC w/ auto diff WBC 10^3/u l 4.8 10.8 5.2 FINAL Adi Cortez [facility]. [address] [place] [address] [address] [address] CLIA#45D [id number] 09/11 CBC w/ auto diff RBC 10^6/u l 4.7 6.1 5.51 FINAL Adi Cortez [facility]. [address] [place] [address] [address] [address] CLIA#45D [id number] 09/11 CBC w/ auto diff HGB g/dl 14.0 18.0 15.7 FINAL Adi Cortez [facility]. [address] [place] [address] [address] [address] CLIA#45D [id number] 09/11 CBC w/ auto diff HCT % 40.0 50.0 45.2 FINAL Adi Cortez [facility]. [address] [place] [address] [address] [address] CLIA#45D [id number] 09/11 CBC w/ auto diff MCV fl 80.0 94.0 82.0 FINAL Adi Cortez [facility]. [address] [place] [address] [address] [address] CLIA#45D [id number] 09/11 CBC w/ auto diff MCH pg 27.0 31.0 28.5 FINAL Adi Coretz [facility]. [address] [place] [address] [address] [address] CLIA#45D [id number] 09/11 CBC w/ auto diff MCHC g/dl 33.0 37.0 34.7 FINAL Adi Cortez [facility]. [address] [place] [address] [address] [address] CLIA#45D [id number] 09/11 CBC w/ auto diff MPV fl 9.4 12.4 9.4 FINAL Adi Cortez [facility]. [address] [place] [address] [address] [address] CLIA#45D [id number] 09/11 CBC w/ auto diff RDW % 10.5 14.5 13.1 FINAL Adi Cortez [facility]. [address] [place] [address] [address] [address] CLIA#45D [id number] 09/11 CBC w/ auto diff PLT 10^3/u l 130.0 400.0 196 FINAL Adi Cortez [facility]. [address] [place] [address] [address] [address] CLIA#45D [id number] 09/11 CBC w/ auto diff Derek % % 40.0 77.0 58.2 FINAL Adi Cortez [facility]. [address] [place] [address] [address] [address] CLIA#45D [id number] 09/11 CBC w/ auto diff Derek # (ANC) x10^3/ ul 1.5 6.5 3.0 FINAL Adi Cortez [facility]. [address] [place] [address] [address] [address] CLIA#45D [id number] 09/11 CBC w/ auto diff IG % % 0.0 0.5 0.2 FINAL Adi Cortez [facility]. [address] [place] [address] [address] [address] CLIA#[id number] [id number] 09/11 CBC w/ auto diff IG # x10^3/ ul 0.0 0.0 0.0 FINAL Adi Cortez [facility]. [address] [place] [address] [address] [address] CLIA#45D [id number] 09/11 CBC w/ auto diff LY % % 15.0 41.0 27.5 FINAL Adi Cortez [facility]. [address] [place] [address] [address] [address] CLIA#45D [id number] 09/11 CBC w/ auto diff LY # x10^3/ ul 1.2 3.4 1.4 FINAL Adi Cortez [facility]. [address] [place] [address] [address] [address] CLIA#45D [id number] 09/11 CBC w/ auto diff MO % % 3.0 11.0 11.2 High FINAL Adi Cortez [facility]. [address] [place] [address] [address] [address] CLIA#[id number] [id number] 09/11 CBC w/ auto diff MO # x10^3/ ul 0.0 1.0 0.6 FINAL Adi Cortez [facility]. [address] [place] [address] [address] [address] CLIA#[id number] [id number] 09/11 CBC w/ auto diff EO % % 0.0 3.0 2.5 FINAL Adi Cortez [facility]. [address] [address] CLIA#[id number] [id number] 09/11 CBC w/ auto diff EO # x10^3/ ul 0.0 0.3 0.1 FINAL Adi Cortez [facility]. [address] [place] [address] [address] [address] CLIA#45D [id number] 09/11 CBC w/ auto diff BA % % 0.0 1.0 0.4 FINAL Adi Cortez [facility]. [address] [place] [address] [address] [address] CLIA#45D [id number] 09/11 CBC w/ auto diff BA # x10^3/ ul 0.0 0.2 0.0 FINAL Adi Cortez [facility]. [address] [place] [address] [address] [address] CLIA#45D [id number] 09/11 CBC w/ auto diff NRBC, % % 0.0 1.0 0.0 FINAL Adi Cortez [facility]. [address] [place] [address] [address] [address] CLIA#[id number] [id number] 09/11 CBC w/ auto diff NRBC, absol germain, x 10^3/ uL 10^3/u l 0.0 0.1 0.0 FINAL Adi Cortez [facility]. [address] [place] [address] [address] [address] CLIA#[id number] [id number] Medications Date Name Route Dose Frequency Instructions [...]
--- OUTSIDE RECORDS SUMMARY | 2025-04-30 16:53 | XMS_ITS | CCD ---
Author Name Interface, [id number] lity Address [place] [address] Organization [facility] Address More breakthroughs[place] [address] Care Team Providers Care Statistical Consultant Name Role Phone Rommel Druán Unavailable Unavailable Adi Cortez Unavailable Unavailable Donnie Dangelo Unavailable Unavailable Allergies and Adverse Reactions Reason for Visit Encounters Functional Status Medications Problems Social History
[2025-04-30 17:26] LABS: Alanine Aminotransferase 34 U/L (12-78); Albumin Level 4.5 g/dl (3.5-5.0); Alkaline Phosphatase 61 U/L (38-126); Aspartate Amino Transferase 35 U/L (17-59); Bilirubin,Direct 0.2 mg/dl (0.0-0.4); Bilirubin,Indirect 0.4 mg/dL (0.0-0.9); Bilirubin,Total 0.6 mg/dl (0.2-1.3); Bilirubin,Unconjugated 0.4 mg/dL (0.0-1.1); Total Protein,Serum 7.2 g/dl (6.3-8.2)
== END 2025-04-30 23:59 | disposition home or self-care (01) ==
LOC: LAB.DROPOF 16:50
PROVIDERS: PCP Internal Medicine; Visit Provider Internal Medicine
DX: B35.1 Tinea unguium (principal)
CPT/HCPCS: 80076